=== PATIENT | female | born 1950 | race Caucasian/White ===

== ENCOUNTER 2022-09-07 16:23 | Emergency (ER) | payer OTHER ==
[~2022-09-07] VITALS: Ht 162.6 cm; Wt 79.8 kg
[2022-09-07 16:34] VITALS: BP 161/78
--- NOTE | 2022-09-07 17:09 | NUR ---
72/F WALKED IN C/O LLQ ABD PAIN ONSET 1WK. DENIES NVD. DENIES FEVER. PMH: DENIES
[2022-09-07] MEDS ORDERED: ACETAMINOPHEN EXTRA STRENGTH 500 MG TAB PO ONE (17:15)
--- NOTE | 2022-09-07 17:25 | NUR ---
TO ER BED 4
--- NOTE | 2022-09-07 17:26 | NUR ---
Pt given urine cup for specimen sample. Pt ambulated to bed 04 with a steady gait
--- NOTE | 2022-09-07 17:32 | NUR ---
Pt taken to CT by wheelchair
--- NOTE | 2022-09-07 17:40 | NUR ---
Pt back to bed [address]
[2022-09-07 17:57] LABS: APPEARANCE,URINE CLEAR (CLEAR); BILIRUBIN,URINE NEGATIVE (NEGATIVE); BLOOD, URINE NEGATIVE (NEGATIVE); COLOR,URINE YELLOW (YELLOW); LEUKOCYTE ESTERASE ,URINE TRACE (NEGATIVE); NITRITE, URINE NEGATIVE (NEGATIVE); PH,URINE 7.5 (5.0-9.0); UGLUCOSE NEGATIVE (NEGATIVE)
[2022-09-07 18:04] LABS: BASOPHILS # (AUTO) 0.1 K/uL (0.00-0.22); BASOPHILS % (AUTO) 1.3 % (0.0-2.0); EOSINOPHILS # (AUTO) 0.2 K/uL (0-0.4); EOSINOPHILS % (AUTO) 2.2 % (0.0-4.0); HEMATOCRIT 36.1 % (36-48); HEMOGLOBIN 12.6 g/dL (12.0-16.0); LYMPHOCYTES # (AUTO) 2.4 K/uL (2.5-16.5); LYMPHOCYTES % (AUTO) 33.8 % (20.5-51.1); MEAN CORPUSCULAR HEMOGLOBIN 33 pg (27-31); MEAN CORPUSCULAR HGB CONC 35 g/dL (33-37); MEAN CORPUSCULAR VOLUME 93.3 fL (80-94); MONOCYTES # (AUTO) 0.4 K/uL (0.8-1.0); MONOCYTES % (AUTO) 5.9 % (1.7-9.3); NEUTROPHILS # (AUTO) 4.1 K/uL (1.8-7.7); NEUTROPHILS % (AUTO) 56.8 % (42.2-75.2); PLATELET COUNT (AUTO) 341 K/uL (140-450); RED BLOOD CELL COUNT(AUTO) 3.87 MIL/uL (4.20-5.40); RED CELL DISTRIBUTION WIDTH 13.8 % (11.6-13.7); WHITE BLOOD COUNT (AUTO) 7.2 K/uL (4.8-10.8)
[2022-09-07 18:16] LABS: OTHER CASTS, URINE None Seen /LPF (None Seen)
[2022-09-07 18:16] LABS: ALBUMIN 3.8 g/dL (3.4-5.0); ANION GAP 7.5 (8-16); ASPARTATE AMINOTRANSFERASE 16 U/L (15-37); CARBON DIOXIDE 33.4 mmol/L (21-32); CHLORIDE 98 mmol/L (98-107); CREATININE 0.7 mg/dL (0.6-1.3); GLUCOSE 114 mg/dL (74-106); LIPASE 184 U/L (73-393); POTASSIUM 3.9 mmol/L (3.5-5.1); SODIUM SERUM 135 mmol/L (136-145); TOTAL BILIRUBIN 0.1 mg/dL (0.0-1.0); UREA NITROGEN, BLOOD 11 mg/dL (7-18)
[2022-09-07] MEDS ORDERED: IBUP-2213 PO (18:30)
[2022-09-07] MEDS ORDERED: ACET-8905 PO (18:30)
[2022-09-07] MEDS ORDERED: ONDA-188 PO (18:30)
[2022-09-07] MEDS ORDERED: ACET-10509 PO (19:21)
[2022-09-07] MEDS ORDERED: MIRABULK PO (19:21)
[2022-09-07] MEDS ORDERED: DOCU1TAB73 PO (19:21)
--- NOTE | 2022-09-07 19:27 | NUR ---
Pt report given to STEVENSON Brown. Transfer of care at this time.
--- NOTE | 2022-09-07 19:40 | NUR ---
Patient discharged with v/s stable. Written and verbal after care instructions given and explained. Patient alert, oriented and verbalized understanding of instructions. Ambulatory with to car. All questions addressed prior to discharge. ID band removed. Patient advised to follow up with PMD. Rx of tylenol/miralax/dss given. Patient educated on indication of medication including possible reaction and side effects. Opportunity to ask questions provided and answered.
== END 2022-09-07 19:40 | disposition home or self-care (01) ==
LOC: MED 16:23
DX: R10.32 Left lower quadrant pain (principal); Z90.49 Acquired absence of other specified parts of digestive tract; Z90.89 Acquired absence of other organs
CPT/HCPCS: 36415; 80053; 81001; 83690; 85025; 87086; 99284